=== PATIENT | male | born 1960 | race Caucasian/White ===

== ENCOUNTER 2018-05-22 14:45 | Emergency (ER) | payer SELFPAY ==
[2018-05-22 16:57] VITALS: BP 0/0
== END 2018-05-22 15:25 | disposition left against medical advice (07) ==
LOC: ED 14:45
DX: S89.91XA Unspecified injury of right lower leg, initial encounter (principal); X58.XXXA Exposure to other specified factors, initial encounter; Y93.9 Activity, unspecified; Y92.9 Unspecified place or not applicable; Z53.21 Procedure and treatment not carried out due to patient leaving prior to being seen by health care provider

== ENCOUNTER 2018-05-23 09:06 | Emergency (ER) | payer SELFPAY ==
--- NOTE | 2018-05-23 11:05 | RAD ---
INDICATION: Right knee pain after feeling a "pop" jumping out of a truck. There is also a lump on the medial aspect of the right knee. COMPARISON: None TECHNIQUE: 4 view radiograph of the right knee. FINDINGS: The visualized bones are well-corticated and properly aligned. The joint spaces are properly maintained. There is no radiographic evidence of joint effusion. There is no acute fracture, dislocation or other focal bony abnormality. Incidentally noted is calcified atherosclerosis overlying the distal superficial femoral arteries and the proximal infrapopliteal arteries. IMPRESSION: 1. No radiographically apparent abnormality of the right knee. 2. Incidentally noted is calcified atherosclerosis of the visualized right leg arteries. Please correlate to any signs or symptoms of lower extremity arterial insufficiency. If the patient's symptoms persist, follow-up imaging is recommended.
[2018-05-23 11:12] VITALS: BP 122/79
--- NOTE | 2018-05-23 15:00 | ED ---
Lower Extremity - HPI Summary HPI Summary: Patient is a 58-year-old male who presents emergency department for right knee pain times several days. Patient states he initially had a twisting injury when he was chasing his grandson child. He states yesterday he jumped out of his truck and developed increased pain to his right knee. Denies numbness, tingling or weakness. Symptoms are mild in severity. Walking and movement makes symptoms worse. Rest makes symptoms better. - History of Current Complaint Chief Complaint: EDExtremityLower Stated Complaint: RT KNEE PAIN Time Seen by Provider: 05/23/18 09:16 Hx Obtained From: Patient Pain Intensity: 2 Pain Scale Used: 0-10 Numeric - Allergies/Home Medications Allergies/Adverse Reactions: Allergies Allergy/AdvReac Type Severity Reaction Status Date / Time No Known Allergies Allergy Verified 05/23/18 09:14 PMH/Surg Hx/FS Hx/Imm Hx Previously Healthy: Yes Infectious Disease History: No Infectious Disease History: Denies: Traveled Outside the [place] in Last 30 Days - Social History Occupation: Employed Full-time Lives: With Family Alcohol Use: Occasionally Alcohol Amount: 6 pack last night Substance Use Type: Reports: None Smoking Status (MU): Heavy Every Day Tobacco Smoker Review of Systems Positive: Other - Right knee pain Negative: Weakness, Paresthesia, Numbness All Other Systems Reviewed And Are Negative: Yes Physical Exam Triage Information Reviewed: Yes Vital Signs On Initial Exam: Initial Vitals Temp Pulse Resp BP Pulse Ox 97.7 F 68 17 115/74 98 05/23/18 09:11 05/23/18 09:11 05/23/18 09:11 05/23/18 09:11 05/23/18 09:11 Vital Signs Reviewed: Yes Appearance: Positive: Well-Appearing - Pt. lying on bed in NAD. Skin: Positive: Warm, Dry Eyes: Positive: Normal Musculoskeletal: Positive: Other - Pain and mild edema over the medial aspect of the right knee. No overlying erythema or increased warmth. Full range of motion with pain. No increased laxity. No proximal or distal injuries. Neurological: Positive: Normal, CN Intact II-III Psychiatric: Positive: Affect/Mood Appropriate Diagnostics - Vital Signs Vital Signs Temp Pulse Resp BP Pulse Ox 05/23/18 11:11 98.3 F 66 18 122/79 95 05/23/18 09:11 97.7 F 68 17 115/74 98 - Laboratory Lab Statement: Any lab studies that have been ordered have been reviewed, and results considered in the medical decision making process. Lower Extremity Course/Dx - Course Course Of Treatment: Patient presenting with minor right knee injury. X-rays are negative for acute findings, reading per radiology. Immobilizer is placed for suspect ligamental injury. Patient declined crutches. Advised to ice and elevate. Anti-inflammatories as directed. To call orthopedics on Friday for follow-up appointment. - Diagnoses Differential Diagnosis/HQI/PQRI: Positive: Arthritis, Contusion, Dislocation, Fracture (Closed), Sprain, Strain Provider Diagnoses: Knee sprain Discharge - Sign-Out/Discharge Documenting (check all that apply): Patient Departure - Discharge Plan Condition: Good Disposition: HOME Patient Education Materials: Knee Sprain (ED) Referrals: Mayur Pate MD [Medical Doctor] - No Primary Care Phys,NOPCP [Primary Care Provider] - Additional Instructions: Schedule a follow up appointment with orthopedics Wear splint for comfort Ice and elevate NSAIDS for pain as directed such as ibuprofen or Aleve - Billing Disposition and Condition Condition: GOOD Disposition: Home
== END 2018-05-23 11:11 | disposition home or self-care (01) ==
LOC: ED 09:06
DX: S83.91XA Sprain of unspecified site of right knee, initial encounter (principal); W17.89XA Other fall from one level to another, initial encounter; Y92.9 Unspecified place or not applicable; F17.200 Nicotine dependence, unspecified, uncomplicated
CPT/HCPCS: 99282